=== PATIENT | female | born 1955 | race Caucasian/White ===

== ENCOUNTER 2018-12-09 08:15 | Outpatient (CLI) | payer OTHER ==
[2018-12-09] MEDS ORDERED: BARIUM SULFATE 135 ML SUSP.RECON (E-Z-HD) PO ONE (08:43)
== END 2018-12-09 21:08 | disposition home or self-care (01) ==
LOC: SRD 08:15
PROVIDERS: ATTEND Otolaryngology Plastic Surgery within the Head & Neck
DX: K21.9 Gastro-esophageal reflux disease without esophagitis (principal); R49.0 Dysphonia
CPT/HCPCS: 74220-TC